=== PATIENT | male | born 1985 | race Caucasian/White ===

== ENCOUNTER 2022-10-31 11:15 | Emergency (ER) | payer BC, SELFPAY ==
--- NOTE | ~2022-10-31 | CT_ITS ---
Non-contrast Head CT History: Altered mental status Technique: Axial non-contrast imaging of the brain was performed. Dose reduction technique was used on this scan by utilizing automated exposure control and iterative reconstruction technique. The dose -length product (DLP) was 681.00 mGy-cm. Findings: There is no evidence of intracranial hemorrhage, mass lesion, or acute infarct. Brain par enchyma appears normal. The ventricles and subarachnoid spaces are normal in size. The calvarium ap pears normal. The visualized paranasal sinuses and mastoid air cells are clear. Impression: No significant abnormality seen. Reviewed, dictated and finalized at location . Impression: No significant abnormality seen.
--- NOTE | 2022-10-31 11:19 | ECG_ITS ---
Measurements Intervals [place] Rate: 57 P: 35 WA: 144 QRS: 123 QRSD: 98 T: 24 QT: 393 QTc: 383 Interpretive Statements SINUS BRADYCARDIA WITH MARKED RHYTHM IRREGULARITY, POSSIBLE NON-CONDUCTED PAC LEFT ATRIAL ENLARGEMENT [-0.15mV P WAVE IN V1/V2] LOW QRS VOLTAGE IN PRECORDIAL LEADS [QRS DEFLECTION < 1.0 mV IN CHEST LEADS] INCOMPLETE RIGHT BUNDLE BRANCH BLOCK [90+ ms QRS DURATION, TERMINAL R IN V1/V2, 40+ ms S IN I/aVL/V4/V5/V6] WARNING: DATA QUALITY MAY AFFECT INTERPRETATION NO PREVIOUS ECG AVAILABLE FOR COMPARISON Electronically Signed On 10-31-2022 13:00:05 CDT by Nickie Crum M.D.
[2022-10-31 11:21] VITALS: BP 129/63; PULSE 90; RESP 18; TEMP 36.6; O2SAT 95
--- NOTE | 2022-10-31 11:35 | PC.NURSE ---
Patient takes saboxone and states he is unsure if he took 1mg or 2mg of xanax this morning.
[2022-10-31 11:39] LABS: Basophils Absolute Auto 0.1 K/mm3 (0.0-0.1); Basophils Percent Auto 0.4 % (0.2-1.2); Eosinophils Absolute Auto 0.4 K/mm3 (0-0.3); Eosinophils Percent Auto 2.4 % (0-4.4); Hematocrit 43.7 % (42.0-52.0); Hemoglobin 14.6 g/dL (14.0-18.0); Immature Granulocyte Absolute 0.12 K/mm3 (0.00-0.031); Immature Granulocyte Percent A 0.8 % (0-0.5); Lymphocytes Absolute Auto 2.41 K/mm3 (0.9-3.2); Lymphocytes Percent Auto 16.2 % (18.3-44.2); Mean Corpuscular HGB Conc 33.4 g/dl (32-36); Mean Corpuscular Hemoglobin 29.3 pg (26-34); Mean Corpuscular Volume 87.6 fl (80-100); Mean Platelet Volume 10.7 fl (7.4-10.4); Monocytes Absolute Auto 1.4 K/mm3 (0.1-0.6); Monocytes Percent Auto 9.3 % (2.6-8.5); Neutrophils Absolute Auto 10.5 K/mm3 (1.3-6.7); Neutrophils Percent Auto 70.9 % (45.5-73.1); Platelet Count Result 192 k/mm3 (150-375); Red Blood Count 4.99 M/mm3 (4.6-6.20); Red Cell Distribution Width 13.5 % (11.5-14.5); White Blood Count 14.9 K/mm3 (4.5-10.0)
--- NOTE | 2022-10-31 11:55 | ED.GENADULT ---
HPI - General Adult General Chief complaint: Syncope Stated complaint: syncopal Time Seen by Provider: 10/31/22 11:34 History of Present Illness HPI narrative: 37-year-old male presented the emergency department for evaluation of altered mental status. Patient does have a history of drug abuse. Patient does take Suboxone and Xanax. Patient has been out of rehab for the past 2 days. Family member came home and found him laying in the yard. Patient states he did take 2 mg of Xanax, his Suboxone. Patient also takes multiple sedating psychiatric medications. Patient states that he took 2 mg of Xanax compared to his normal 1 mg of Xanax for recreational reasons and not for reasons of self-harm. Related Data Allergies Allergy/AdvReac Type Severity Reaction Status Date / Time No Known Allergies Allergy Verified 10/31/22 11:16 Review of Systems Review of Systems: All systems reviewed & are unremarkable except as noted in HPI and below Exam Narrative: APPEARANCE: Sedate but well appearing, no pain, no distress, well-nourished. HEAD: normocephalic, atraumatic. EYES: PERRLA/EOMI, conjunctivae clear. THROAT: Pharynx clear, no exudate. NECK: Supple. No adenopathy, no masses. RESPIRATORY: Airway patent, respirations nonlabored. Clear to auscultation bilaterally, no rales, rhonchi, wheezing. CARDIOVASCULAR: Regular rate and rhythm without murmurs rubs or gallops. ABDOMINAL: Soft, nontender, nondistended, normal bowel sounds MUSCULOSKELETAL: Moves all extremities. Strength/ROM intact, No edema, No calf tenderness. NEURO: Alert. Cranial nerves II through XII intact. Grossly intact SKIN: Warm, dry. Normal Color Course Course Emergency Course: 37-year-old male presented the ED for evaluation of a possible accidental drug overdose and syncopal episode. Patient does feel improved and is more alert and oriented in the emergency department. Patient does have a mild leukocytosis of 14.9 but is afebrile. Patient's electrolytes are similar to his baseline. UA shows no evidence of urinary tract infection. Patient did test positive for benzos but this is a home medication. Patient's head CT was negative for acute intracranial abnormality. EKG showed sinus bradycardia Patient and family were updated on the results of the work-up. Patient states he will have close follow-up with his primary care physician to discuss weaning back on some of his sedating medications. Patient and family were comfortable with the plan for discharge and close follow-up. All questions and concerns were addressed. Vital Signs Vital signs: Vital Signs Temperature 97.9 F 10/31/22 11:21 Pulse Rate 90 10/31/22 11:21 Respiratory Rate 18 10/31/22 11:21 Blood Pressure 129/63 10/31/22 11:21 Pulse Oximetry 95 10/31/22 11:21 Oxygen Delivery Room Air 10/31/22 11:21 Temperature 97.9 F 10/31/22 11:21 Pulse Rate 78 10/31/22 15:08 Respiratory Rate 11 L 10/31/22 15:08 Blood Pressure 135/90 10/31/22 15:08 Pulse Oximetry 97 10/31/22 15:08 Oxygen Delivery Room Air 10/31/22 11:21 Medical Decision Making Vital Signs Vital Signs: Vital Signs Temperature 97.9 F 10/31/22 11:21 Pulse Rate 90 10/31/22 11:21 Respiratory Rate 18 10/31/22 11:21 Blood Pressure 129/63 10/31/22 11:21 Pulse Oximetry 95 10/31/22 11:21 Oxygen Delivery Room Air 10/31/22 11:21 Temperature 97.9 F 10/31/22 11:21 Pulse Rate 78 10/31/22 15:08 Respiratory Rate 11 L 10/31/22 15:08 Blood Pressure 135/90 10/31/22 15:08 Pulse Oximetry 97 10/31/22 15:08 Oxygen Delivery Room Air 10/31/22 11:21 Lab Data Lab results reviewed: Yes I reviewed the patient's lab results. 10/31/22 11:28 10/31/22 11:29 Labs: Lab Results 10/31/22 10/31/22 10/31/22 Range/Units 11:28 11:29 14:56 WBC 14.9 H (4.5-10.0) K/mm3 RBC 4.99 (4.6-6.20) M/mm3 Hgb 14.6 (14.0-18.0) g/dL Hct 43.7
[2022-10-31 12:06] LABS: Alanine Aminotransferase 47 U/L (6-50); Albumin Level 4.8 g/dL (3.5-5.1); Alkaline Phosphatase 127 U/L (38-126); Anion Gap 3 mmol/L (8-16); Aspartate Amino Transferase 76 U/L (17-59); Bilirubin,Total 0.7 mg/dL (0.2-1.3); Blood Urea Nitrogen 17 mg/dL (9-20); Calcium 9.3 mg/dL (8.4-10.2); Carbon Dioxide 35 mmol/L (22-30); Chloride 99 mmol/L (98-107); Estimated CRCL calculation 129 ml/min; Estimated Glomerular Filt Rate > 60; Glucose 108 mg/dL (65-110); Potassium 4.3 mmol/L (3.4-5.0); Sodium 137 mmol/L (137-145)
[2022-10-31 12:34] LABS: Acetaminophen < 10 ug/mL (10-30); Ethanol < 10 mg/dL (<10); Salicylate < 1.0 mg/dL (2-20)
[2022-10-31 13:15] VITALS: PULSE 76; RESP 19; O2SAT 96
[2022-10-31] MEDS: SODIUM CHLORIDE 0.9% IV 1,000 ML 999 ML IV CONT ×2 (13:40→15:08)
--- NOTE | 2022-10-31 13:53 | PC.NURSE ---
patient more awake and alert at this time. patient unable to urinate and has urinal at bedside.
[2022-10-31 15:08] VITALS: BP 135/90; PULSE 78; RESP 11; O2SAT 97
[2022-10-31 15:13] LABS: Appearance Urine Clear (Clear); Bilirubin Urine Negative (Negative); Blood Urine Negative (Negative); Color Urine Dark Yellow (Yellow); Glucose Urine UA Negative (Negative); Ketones Urine Negative (Negative); Leukocyte Esterase Ur Negative LEU/UL (Negative); Nitrate Urine Negative (Negative); Protein Urine Negative (Negative); Specific Grav Ur 1.024 (1.001-1.035); Urobilinogen Urine 0.2 mg/dL (<2.0)
[2022-10-31 15:28] LABS: Add Urine Microscopic? NO
[2022-10-31 15:32] LABS: Amphetamine Screen Urine Negative (Negative); Barbiturate Screen Urine Negative (Negative); Benzodiazepines Screen Urine Positive (Negative); Cannabinoid Screen Urine Negative (Negative); Cocaine Screen Urine Negative (Negative); Methadone Screen Urine Negative (Negative); Opiate Screen Urine Negative (Negative); Phencyclidine Screen Urine Negative (Negative)
== END 2022-10-31 16:34 | disposition home or self-care (01) ==
PROVIDERS: Emergency Provider Emergency Medicine; PCP Family Medicine
DX: R55 Syncope and collapse (principal); T50.911A Poisoning by multiple unspecified drugs, medicaments and biological substances, accidental (unintentional), initial encounter
CPT/HCPCS: 36415; 70450; 80053; 80307; 81003; 85025; 93005; 96360; 96361; 99284; J7030